=== PATIENT | female | born 1960 | race Two or more races ===

== ENCOUNTER 2024-10-27 13:38 | Inpatient (IN) | payer OTHER ==
[2024-10-27 14:26] VITALS: BMI 25.9
[2024-10-27] MEDS ORDERED: guaiFENesin 600 MG TABLET.ER (FP) PO PRN (14:44)
[2024-10-27] MEDS ORDERED: NALOXONE (NARCAN) HCL 4 MG/0.1 ML SPRAY NS PRN (14:44)
[2024-10-27] MEDS ORDERED: LOPERAMIDE HCL 2 MG CAPSULE PO PRN (14:44)
[2024-10-27] MEDS ORDERED: BENZOCAINE/MENTHOL (CHLORASEPTIC ) LOZENGE MM PRN (14:44)
[2024-10-27] MEDS ORDERED: POLYETHYLENE GLYCOL (HEALTHYLAX) 3350 17 GM PACKET PO PRN (14:44)
[2024-10-27] MEDS ORDERED: IBUPROFEN 400 MG TABLET (FP) PO PRN (14:44)
[2024-10-27] MEDS ORDERED: BENZONATATE 200 MG CAPSULE PO PRN (14:44)
[2024-10-27] MEDS: PRENATAL VITAMINS W/ FOLIC ACID TABLET (FP) PO SCH (19:11)
[2024-10-27] MEDS: BACITRACIN 0.9 GM PACKET TP ONE (19:11)
[2024-10-27] MEDS: MELATONIN 5 MG TABLETS PO SCH (22:34)
[2024-10-27] MEDS: THIAMINE 100 MG TABLET PO SCH (22:34)
[2024-10-27] MEDS: ALBUTEROL SO4 HFA INHALER IH PRN (22:34)
[2024-10-27] MEDS: hydrOXYzine PAMOATE 25 MG CAPSULE (FP) PO PRN (22:34)
[2024-10-28 01:50] LABS: URINE APPEARANCE CLEAR; URINE BILIRUBIN NEGATIVE (NEGATIVE); URINE COLOR YELLOW; URINE GLUCOSE (UA) NEGATIVE (NEGATIVE); URINE KETONE TRACE (NEGATIVE); URINE LEUK ESTERASE NEGATIVE (NEGATIVE); URINE NITRITE NEGATIVE (NEGATIVE); URINE PROTEIN NEGATIVE (NEGATIVE); URINE UROBILINOGEN 0.2 mg/dL (0.2-1.0)
[2024-10-28] MEDS: NICOTINE 14 MG/24 HOURS TOPICAL PATCH TD SCH (09:30)
[2024-10-28] MEDS: PANTOPRAZOLE 40 MG TABLET PO SCH (09:30)
[2024-10-28] MEDS: IBUPROFEN 600 MG TABLET (FP) PO PRN (09:33)
[2024-10-28 13:35] LABS: HEMATOCRIT 33.9 % (32.4-45.2); HEMOGLOBIN 10.8 GM/dL (10.7-15.3); MCH 28.1 pg (25.7-33.7); MCHC 31.8 g/dl (32.0-36.0); MEAN CELL VOLUME 88.1 fl (80-96); MEAN PLT VOLUME 9.6 fl (7.5-11.1); PLATELET COUNT 243 10^3/uL (134-434); RBC 3.85 M/mm3 (3.60-5.2); RDW 18.1 % (11.6-15.6); WHITE BLOOD COUNT 3.7 K/mm3 (4.0-10.0)
[2024-10-28 14:14] LABS: POTASSIUM 4.6 mmol/L (3.5-5.1)
[2024-10-28 14:23] LABS: CALCIUM 9.2 mg/dL (8.5-10.1)
[2024-10-28 14:24] LABS: ALBUMIN 3.3 g/dl (3.4-5.0); BLOOD UREA NITROGEN 31.9 mg/dL (7-18)
[2024-10-28 14:26] LABS: SYPHILIS W/ RPR CONF NON-REACTIVE (NONREACTIVE)
[2024-10-28 14:27] LABS: CREATININE 0.9 mg/dL (0.55-1.3)
[2024-10-28 14:28] LABS: BILIRUBIN,TOTAL 0.2 mg/dL (0.2-1)
[2024-10-28] MEDS: QUEtiapine FUMARATE 100 MG TABLET (FP) PO SCH (21:07)
[2024-10-29] MEDS ORDERED: NICOTINE POLACRILEX 4 MG LOZENGE BC PRN (09:38)
[2024-10-29] MEDS ORDERED: NICOTINE 7 MG/24 HOURS TOPICAL PATCH TD PRN (09:39)
[2024-10-29] MEDS: BACLOFEN 10 MG TABLET (FP) PO SCH (10:33)
[2024-10-29] MEDS: NALTREXONE HCL 50 MG TABLET PO ONE (10:33)
[2024-10-29] MEDS: VITAMINS A AND D TOPICAL OINTMENT TP SCH (12:22)
[2024-10-30] MEDS: NALTREXONE HCL 50 MG TABLET PO SCH (09:07)
[2024-11-01] MEDS: MAG HYDROX/AL HYDROX/SIMETH 30 ML UNIT-DOSE CUP PO PRN (12:14)
[2024-11-02] MEDS: DOCUSATE SODIUM 100 MG CAPSULE (FP) PO PRN (10:13)
[2024-11-02] MEDS: ARTIFICIAL TEARS OPHTHALMIC DROPS OU PRN (10:13)
[2024-11-02] MEDS: NICOTINE POLACRILEX 2 MG GUM BUC PRN (11:13)
[2024-11-02] MEDS: MAGNESIUM HYDROX 2400MG/30ML ORAL SUSPENSION 30 ML CUP PO PRN (12:47)
[2024-11-03] MEDS: SODIUM CHLORIDE NASAL SPRAY 44 ML BOTTLE NS PRN (21:24)
[2024-11-04] MEDS: SODIUM PHOSPHATE/NA BIPHOS 133 ML ENEMA RC ONE (15:36)
[2024-11-04] MEDS: LACTULOSE 20 GM/30 ML UDC (FOR ORAL USE ONLY) PO PRN (19:19)
[2024-11-05] MEDS: ACETAMINOPHEN 325 MG TABLET (FP) PO PRN (06:20)
[2024-11-08 07:12] VITALS: BP 149/61; PULSE 63; RESP 18; TEMP 97.7
[2024-11-08] MEDS: NALTREXONE MICROSPHERES (VIVITROL) 380 MG DISP.SYRIN IM ONE (07:38)
[2024-11-08] MEDS: NALOXONE (NYS OPIOID OVERDOSE PROGRAM) 4 MG/0.1 ML SPRAY NS ONE (09:45)
[2024-11-09] MEDS ORDERED: NALTREXONE MICROSPHERES (VIVITROL) 380 MG DISP.SYRIN IM ONE (10:00)
== END 2024-11-08 12:00 | disposition home or self-care (01) | DRG 772 ==
LOC: YASAS 13:38 → Y3NR 18:31 → Y5N 10-28 10:13 → Y3NR 10-29 21:15 → Y5N 10-30 11:08
PROVIDERS: ADMIT Psychiatry & Neurology Pain Medicine; ATTEND Family Medicine Addiction Medicine
PROC: HZ42ZZZ Group Counseling for Substance Abuse Treatment, Cognitive-Behavioral (ICD-10-PCS; principal; 2024-10-27)
DX: F10.20 Alcohol dependence, uncomplicated (principal); F14.20 Cocaine dependence, uncomplicated; F17.210 Nicotine dependence, cigarettes, uncomplicated; F41.9 Anxiety disorder, unspecified; F32.9 Major depressive disorder, single episode, unspecified; J45.909 Unspecified asthma, uncomplicated; K21.9 Gastro-esophageal reflux disease without esophagitis; K59.00 Constipation, unspecified; M54.50 Low back pain, unspecified; G89.29 Other chronic pain
CPT/HCPCS: 36415; 80053; 81003; 85027; 86780; 86803; 93005; 93010; J0475; J2315